=== PATIENT | male | born 1995 | race Caucasian/White ===

== ENCOUNTER 2018-11-11 09:56 | Emergency (ER) | payer OTHER, BC ==
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
== END 2018-11-11 11:17 | disposition home or self-care (01) ==
LOC: FB.ED 09:56
DX: S43.402A Unspecified sprain of left shoulder joint, initial encounter (principal); S90.01XA Contusion of right ankle, initial encounter; F17.210 Nicotine dependence, cigarettes, uncomplicated; V49.40XA Driver injured in collision with unspecified motor vehicles in traffic accident, initial encounter
CPT/HCPCS: 73000-LT; 73050; 73610-RT; 99283-25

== ENCOUNTER 2020-12-27 21:15 | Emergency (ER) | payer BC ==
--- NOTE | 2020-12-27 22:40 | EDM.PDOC ---
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 Social & Family History - Family History Family Medical History: No Pertinent Family History - Caffeine Use Caffeine Use: Reports: Soda Review of Systems - Review of Systems Review Of Systems: See Below Constitutional: Reports: No Symptoms Eyes: Reports: No Symptoms Ears: Reports: No Symptoms Nose: Reports: No Symptoms Mouth/Throat: Reports: No Symptoms Respiratory: Reports: No Symptoms Cardiovascular: Reports: No Symptoms GI/Abdominal: Reports: No Symptoms Genitourinary: Reports: No Symptoms Musculoskeletal: Reports: Other (R wrist pain) Skin: Reports: No Symptoms Neurological: Reports: No Symptoms Psychiatric: Reports: No Symptoms ED EXAM, GENERAL - Physical Exam Exam: See Below Exam Limited By: No Limitations General Appearance: Alert, WD/WN, No Apparent Distress Extremities: Other (R wrist with no swell, no ecchymosis, no deformity, no definite bony tender, slight tender at base of 5th MC c/w sprain, NT at ulnar styloid, NT to firm pressure at navicular) Neurological: Alert, Oriented, CN II-XII Intact, Normal Cognition, Normal Gait, No Motor/Sensory Deficits Course - Orders/Labs/Meds Orders: Active Orders 24 hr Category Date Time Status Wrist Comp Min 3V Rt [CR] Stat Exams 12/27/20 21:23 Taken - Re-Assessments/Exams Free Text/Narrative Re-Assessment/Exam: 12/27/20 22:42 prelim ED read of XR with old ulnar styloid tip fx, there is a questionable irregularity at distal 1/3rd of navicular, however pt is nontender over navicular PE c/w with mild lateral wrist sprain given a splint and an Gregor, may use just Gregor when working (less bulk) or splint covered with Gregor (to protect splint from flour and food products) Departure - Departure Time of Disposition: 22:35 Disposition: Home, Self-Care 01 Condition: Good Clinical Impression: Right wrist sprain - Discharge Information *PRESCRIPTION DRUG MONITORING PROGRAM REVIEWED*: Not Applicable *COPY OF PRESCRIPTION DRUG MONITORING REPORT IN PATIENT BOB: Not Applicable Instructions: Wrist Sprain, Adult Referrals: PCP,None [Primary Care Provider] - Additional Instructions: Use wrist splint for the next 5 days, longer if needed. May remove to shower. For pain and inflammation and swelling, take ibuprofen 200 mg 4 tabs 3 times a day for 5 days. Use ice for 10 minutes 4 times a day for 1-2 days. May work in [address] Lozada in 5 days, earlier as needed. - My Orders Last 24 Hours: My Active Orders 12/27/20 21:23 Wrist Comp Min 3V Rt [CR] Stat - Assessment/Plan Last 24 Hours: My Active Orders 12/27/20 21:23 Wrist Comp Min 3V Rt [CR] Stat
--- NOTE | 2020-12-28 18:12 | CR ---
RIGHT WRIST 7409 INDICATION: Fall, pain. Question fracture. Three views of the right wrist were obtained 12/27/2020--no comparisons. What appears to be either an ununited chip fracture fragment or an ununited accessory ossification center is noted at the ulnar styloid. An acute fracture or dislocation was not identified. There is slight volar fat pad deviation raising question of a minimal wrist joint effusion. Bone density appeared normal. IMPRESSION: 1. No acute fracture or dislocation. If symptoms persist--if occult fracture site is suspected clinically, re- examination in 10-14 days may be helpful. 2. Suggestion of minimal wrist joint effusion. If soft tissue injury is suspected clinically, and depending upon clinical necessity, additional examination such as MRI may be helpful for further evaluation. [facility]
== END 2020-12-27 22:55 | disposition home or self-care (01) ==
LOC: FB.ED 21:15
DX: S63.501A Unspecified sprain of right wrist, initial encounter (principal); W01.0XXA Fall on same level from slipping, tripping and stumbling without subsequent striking against object, initial encounter; Y92.009 Unspecified place in unspecified non-institutional (private) residence as the place of occurrence of the external cause
CPT/HCPCS: 73110-RT; 99283

== ENCOUNTER 2021-01-27 19:45 | Emergency (ER) | payer BC ==
[2021-01-27] MEDS ORDERED: Sodium Chloride 0.9% 10 ML Syringe FLUSH PRN (20:15)
[2021-01-27] MEDS ORDERED: Ketorolac 30 MG/ML SDV IVPUSH STA (20:16)
--- NOTE | 2021-01-27 20:18 | EDM.PDOC ---
ED HPI GENERAL MEDICAL PROBLEM - General Stated Complaint: side pain Time Seen by Provider: 01/27/21 19:50 Source of Information: Reports: Patient History Limitations: Reports: No Limitations - History of Present Illness INITIAL COMMENTS - FREE TEXT/NARRATIVE: Patient presented to the ED because of sudden onset of abdominal pain at 11 this morning. The pain is sharp,10/10, over the LUQ/Left flank and LLQ. There is no N/V/D. Denieshaving any fever or chills. Left Abdomen Pain Score (Numeric/FACES): 10 - Related Data Allergies Allergy/AdvReac Type Severity Reaction Status Date / Time No Known Allergies Allergy Verified 01/27/21 19:58 Home Meds: Home Meds NK [No Known Home Meds] 11/11/18 [History] Past Medical History Musculoskeletal History: Reports: Fracture Other Musculoskeletal History: Left wrist Psychiatric History: Reports: Depression - Infectious Disease History Infectious Disease History: Reports: Chicken Pox - Past Surgical History HEENT Surgical History: Reports: Tonsillectomy, Other (See Below) Other HEENT Surgeries/Procedures: Tubes placed in bilateral ears as a young child. Social & Family History - Family History Family Medical History: No Pertinent Family History - Caffeine Use Caffeine Use: Reports: Soda ED ROS GENERAL - Review of Systems Review Of Systems: See Below Constitutional: Reports: No Symptoms HEENT: Reports: No Symptoms Respiratory: Reports: No Symptoms Cardiovascular: Reports: No Symptoms Endocrine: Reports: No Symptoms GI/Abdominal: Reports: Abdominal Pain : Reports: No Symptoms Musculoskeletal: Reports: No Symptoms Skin: Reports: No Symptoms Neurological: Reports: No Symptoms Psychiatric: Reports: No Symptoms ED EXAM, GI/ABD - Physical Exam Exam: See Below Exam Limited By: No Limitations General Appearance: Alert, No Apparent Distress Ears: Normal External Exam, Normal Canal Nose: Normal Inspection, Normal Mucosa Throat/Mouth: Normal Inspection, Normal Lips, Normal Teeth Head: Atraumatic, Normocephalic Neck: Normal Inspection, Supple, Non-Tender, Full Range of Motion Respiratory/Chest: No Respiratory Distress, Lungs Clear, Normal Breath Sounds Cardiovascular: Normal Peripheral Pulses, Regular Rate, Rhythm, No Edema, No Gallop, No JVD, No Murmur GI/Abdominal Exam: Normal Bowel Sounds, Soft, Other (tenderness LLQ/LUQ/L flank) Back Exam: Normal Inspection, Full Range of Motion Extremities: Normal Inspection, Normal Range of Motion, Non-Tender Neurological: Alert, Oriented, CN II-XII Intact, Normal Cognition, Normal Gait, Normal Reflexes, No Motor/Sensory Deficits Course - Vital Signs Text/Narrative:: Lab and CT result was reviewed and discussed with patient NS 1 L bolus Toradol 30 mg IV x1 Last Recorded V/S: Last Vital Signs Temp 37.1 C 01/27/21 19:45 Pulse 103 H 01/27/21 19:45 Resp 19 01/27/21 19:45 BP 139/68 01/27/21 19:45 Pulse Ox 98 01/27/21 19:45 - Orders/Labs/Meds Orders: Active Orders 24 hr Category Date Time Status Abdomen Pelvis w Cont [CT] Stat Exams 01/27/21 20:17 Taken UA W/MICROSCOPIC [URIN] Stat Lab 01/27/21 20:15 Ordered Sodium Chloride 0.9% [Normal Saline] 1,000 ml Med 01/27/21 20:30 Active IV ASDIRECTED Sodium Chloride 0.9% [Saline Flush] Med 01/27/21 20:15 Active 10 ml FLUSH ASDIRECTED PRN Saline Lock Insert [OM.PC] Routine Oth 01/27/21 20:15 Ordered Medication Orders Sodium Chloride (Normal Saline) 1,000 mls @ 999 mls/hr IV ASDIRECTED AAYUSH Last Admin: 01/27/21 20:20 Dose: 999 mls/hr Documented by: LON Sodium Chloride (Sodium Chloride 0.9% 10 Ml Syringe) 10 ml FLUSH ASDIRECTED PRN PRN Reason: Keep Vein Open Labs: Laboratory Tests 01/27/21 01/27/21 01/27/21 Range/Units 20:25 20:25 20:25 WBC 13.0 H (3.2-10.1) x10-3/uL RBC 5.21 (3.90-5.90) x10(6)uL Hgb 15.4 (12.9-17.7) g/dL Hct 45.3 (38.3-50.1) % MCV 86.9 (80.8-98.7) fL MCH 29.6 (27.0-33.3) pg MCHC 34.0 (28.7-35.3) g/dL RDW 12.6 (12.4-15.0) % Plt Count 193 (117-477) x10(3)uL MPV 9.6 (6.7-11.0) fL Neut % (Auto) 70.1 (40.3-71.8) % Lymph % (Auto) 22.7 (15.8-45.3) % [place] % (Auto) 4.9 L (5.5-15.2) % Eos % (Auto) 1.7 (0.1-6.8) % Baso % (Auto) 0.6 (0.3-3.8) % Neut # (Auto) 9.1 H (1.7-6.9) x10-3/uL Lymph # (Auto) 2.9 (0.5-4.5) x10-3/uL [place] # (Auto) 0.6 (0.0-1.2) x10-3/uL Eos # (Auto) 0.2 (0.0-0.6) x10-3/uL Baso # (Auto) 0.1 (0.0-0.3) x10-3/uL Sodium 140 (135-145) mmol/L Potassium 3.8 (3.5-5.3) mmol/L Chloride 101 (100-110) mmol/L Carbon Dioxide 30 (21-32) mmol/L BUN 13 (7-18) mg/dL Creatinine 1.0 (0.70-1.30) mg/dL Est Cr Clr Drug Dosing 107.41 mL/min Estimated GFR (MDRD) > 60 (>60) BUN/Creatinine Ratio 13.0 (9-20) Glucose 102 (80-116) mg/dL Calcium 8.0 L (8.6-10.2) mg/dL Total Bilirubin 0.3 (0.1-1.3) mg/dL AST 19 (5-25) IU/L ALT 33 (12-36) U/L Alkaline Phosphatase 76 (56-112) IU/L Total Protein 7.0 (6.0-8.0) g/dL Albumin 4.1 (3.5-5.2) g/dL Globulin 2.9 g/dL Albumin/Globulin Ratio 1.4 Amylase 43 (25-115) U/L Lipase 89 (73-393) U/L Meds: Medications Generic Name Dose Route Start Last Admin Trade Name Lizzette PRN Reason Stop Dose Admin Sodium Chloride 1,000 mls @ 999 mls/hr 01/27/21 20:30 01/27/21 20:20 Normal Saline IV 999 mls/hr ASDIRECTED AAYUSH Administration Sodium Chloride 10 ml 01/27/21 20:15 Sodium Chloride 0.9% 10 Ml Syringe FLUSH ASDIRECTED PRN Keep Vein Open Discontinued Medications Generic Name Dose Route Start Last Admin Trade Name Lizzette PRN Reason Stop Dose Admin Iopamidol 100 ml 01/27/21 20:40 01/27/21 20:53 Iopamidol 755 Mg/Ml 100 Ml Bottle IV 01/27/21 20:41 100 ml . DIRECTED ONE Administration Ketorolac Tromethamine 30 mg 01/27/21 20:16 01/27/21 20:25 Ketorolac 30 Mg/Ml Sdv IVPUSH 01/27/21 20:17 30 mg NOW STA Administration Departure - Departure Time of Disposition: 21:40 Disposition: Home, Self-Care 01 Condition: Good Clinical Impression: Musculoskeletal pain - Discharge Information Instructions: Musculoskeletal Pain Referrals: Ck Lincoln MD [Primary Care Provider] - Additional Instructions: Please read discharge instructions on musculoskeletal pain Apply ice or heat whichever makes the pain feel better Take ibuprofen 800 mg with tylenol 1000 mg every 8 hours as needed for pain Follow up as needed Sepsis Event Note (ED) - Evaluation Sepsis Screening Result: No Definite Risk - Focused Exam Vital Signs: Vital Signs Temp Pulse Resp BP Pulse Ox 01/27/21 19:45 37.1 C 103 H 19 139/68 98 - My Orders Last 24 Hours: My Active Orders 01/27/21 20:15 UA W/MICROSCOPIC [URIN] Stat Sodium Chloride 0.9% [Saline Flush] 10 ml FLUSH ASDIRECTED PRN Saline Lock Insert [OM.PC] Routine 01/27/21 20:17 Abdomen Pelvis w Cont [CT] Stat 01/27/21 20:30 Sodium Chloride 0.9% [Normal Saline] 1,000 ml IV ASDIRECTED - Assessment/Plan Last 24 Hours: My Active Orders 01/27/21 20:15 UA W/MICROSCOPIC [URIN] Stat Sodium Chloride 0.9% [Saline Flush] 10 ml FLUSH ASDIRECTED PRN Saline Lock Insert [OM.PC] Routine 01/27/21 20:17 Abdomen Pelvis w Cont [CT] Stat 01/27/21 20:30 Sodium Chloride 0.9% [Normal Saline] 1,000 ml IV ASDIRECTED
[2021-01-27] MEDS ORDERED: Sodium Chloride 0.9% 1,000 ML IV SCH (20:30)
[2021-01-27] MEDS ORDERED: Iopamidol 755 Mg/ML 100 ML Bottle IV ONE (20:40)
== END 2021-01-27 21:55 | disposition home or self-care (01) ==
LOC: FB.ED 19:45
DX: R10.12 Left upper quadrant pain (principal); R10.32 Left lower quadrant pain
CPT/HCPCS: 36415; 74177; 80053; 81001; 82150; 83690; 85025; 96374; 99283-25; 99284; J1885; J7030; Q9967

== ENCOUNTER 2022-04-15 02:56 | Emergency (ER) | payer BC ==
[2022-04-15] MEDS ORDERED: Lidocaine 2% with EPINEPHrine 1:100,000 20 ML MDV INFILT ONE (02:57)
[2022-04-15] MEDS ORDERED: traMADol 50 MG Tab PO ONE (02:57)
[2022-04-15] MEDS ORDERED: Sulfamethoxazole/Trimethoprim 800-160 MG Tab PO ONE (02:57)
== END 2022-04-15 04:00 | disposition home or self-care (01) ==
LOC: FB.ED 02:56
DX: L05.01 Pilonidal cyst with abscess (principal)
CPT/HCPCS: 10080; 99283; A9270

== ENCOUNTER → 2022-07-25 | Day surgery (SDC) | payer BC ==
[~2022-07-25] MED LIST: Bupivacaine 0.5% 30 ML SDV INJECT ONE; Lactated Ringers 1,000 ML IV ONE; Lactated Ringers 1,000 ML IV SCH; Lidocaine 1% with EPINEPHrine 1:100,000 20 ML MDV INJECT ONE; Midazolam 1 MG/ML 2 ML SDV IV ONE; Propofol 200 MG/20 ML SDV IV ONE; Sodium Chloride 0.9% 10 ML Syringe FLUSH PRN; ceFAZolin 1 GM Vial IVPUSH ONE; ceFAZolin 1 GM in Sodium Chloride 0.9% 50 ML IV ONE; fentaNYL 100 MCG/2 ML SDV IV ONE
== END | disposition home or self-care (01) ==
LOC: FB.SDS 06:18
PROVIDERS: ATTEND Surgery
DX: L05.01 Pilonidal cyst with abscess (principal); F33.9 Major depressive disorder, recurrent, unspecified; F17.210 Nicotine dependence, cigarettes, uncomplicated; Z79.899 Other long term (current) drug therapy
CPT/HCPCS: 00902-QZ; 82274; 87070; 87075; 87205; 88304; J0690; J2250; J2704; J3010; J3490; J7120

== ENCOUNTER 2022-10-28 19:32 | Emergency (ER) | payer BC ==
[2022-10-28] MEDS ORDERED: traMADol 50 MG Tab PO ONE (19:33)
== END 2022-10-28 20:45 | disposition home or self-care (01) ==
LOC: FB.ED 19:32
DX: S52.611A Displaced fracture of right ulna styloid process, initial encounter for closed fracture (principal); F17.210 Nicotine dependence, cigarettes, uncomplicated; W01.0XXA Fall on same level from slipping, tripping and stumbling without subsequent striking against object, initial encounter
CPT/HCPCS: 73110; 99283; A9270

== ENCOUNTER 2023-01-28 17:36 | Emergency (ER) | payer BC | END 2023-01-28 18:40 | disposition home or self-care (01) | LOC: FB.ED 17:36 | DX: S05.02XA Injury of conjunctiva and corneal abrasion without foreign body, left eye, initial encounter (principal); Z79.899 Other long term (current) drug therapy; Z87.891 Personal history of nicotine dependence; X58.XXXA Exposure to other specified factors, initial encounter | CPT/HCPCS: 99283 ==